=== PATIENT | female | born 1990 | race African-American/Black ===

== ENCOUNTER 2024-12-22 16:55 | Emergency (ER) | payer SELFPAY ==
[~2024-12-22] VITALS: Ht 157.5 cm; Wt 51.0 kg
[2024-12-22 17:01] VITALS: O2SAT 100
[2024-12-22 17:04] VITALS: BP 117/41; PULSE 86; RESP 18; TEMP 37.1; O2SAT 99
[2024-12-22 18:28] LABS: BASOPHILS % 0.2 % (0.0-2.0); EOSINOPHILS % 0.5 % (0.0-5.0); HEMATOCRIT. 26.6 % (36.0-48.0); HEMOGLOBIN. 8.6 g/dL (12.0-16.0); LYMPHOCYTES % 33.8 % (20.0-50.0); MEAN PLATELET VOLUME 7.9 fl (7.4-10.4); MONOCYTES % 9.6 % (2.0-8.0); NEUTROPHILS % 55.9 % (40.0-76.0); PLATELET 449 x1000/uL (130-400); RED BLOOD CELL COUNT 3.51 mill/uL (4.2-5.4); RED CELL DISTRIBUTION WIDTH 16.1 % (11.6-14.6)
[2024-12-22 18:41] LABS: CREATININE 0.9 mg/dL (0.6-1.0); UREA NITROGEN BLOOD 10 mg/dL (9-23)
[2024-12-22 18:42] LABS: TROPONIN I HIGH SENSITIVITY < 4 ng/L (3.0-34)
[2024-12-22 18:49] LABS: HCG SCREEN NEGATIVE
== END 2024-12-22 20:23 | disposition home or self-care (01) ==
LOC: ER 16:55
DX: R07.9 Chest pain, unspecified (principal); D64.9 Anemia, unspecified; K21.9 Gastro-esophageal reflux disease without esophagitis; Z04.89 Encounter for examination and observation for other specified reasons
CPT/HCPCS: 36415; 71045; 80048; 84484; 84703; 85025; 93005; 99285